=== PATIENT | female | born 1950 | race Caucasian/White ===

== ENCOUNTER → 2016-09-30 | Outpatient (CLI) | payer OTHER ==
[~2016-09-30] MED LIST: ASPEC81 PO; CALCTAB5 PO; CHOL100010 PO; EFFSR150 PO; GLC500 PO; HYDC25 PO; LISI-725 PO; LOVAZA PO; MAGN400T6 PO; SIMV20TA2 PO; [UNRECOGNIZED DRUG - CODE] PO
--- NOTE | 2016-09-30 13:45 | MAMMOGRAPHY REPORT ---
BILATERAL DIGITAL SCREENING MAMMOGRAM WITH CAD: 09/30/2016 CLINICAL HISTORY: Routine screening. Patient has no complaints. TECHNIQUE: Current study was also evaluated with a Computer Aided Detection (CAD) system. Bilatera l CC and MLO views were obtained. COMPARISON: Comparison is made to exams dated: 09/10/2015 mammogram, 09/06/2014 mammogram, 06/14/2013 mammogram, 06/08/2012 mammogram, and 06/08/2011 mammogram - [facility]. BREAST COMPOSITION: There are scattered areas of fibroglandular density in both breasts. FINDINGS: No suspicious masses, calcifications, or areas of architectural distortion are noted in e ither breast. There has been no significant interval change compared to prior exams. Scattered bilat eral benign-appearing calcifications are not significantly changed. IMPRESSION: ACR BI-RADS CATEGORY 2: BENIGN There is no mammographic evidence of malignancy. A 1 year screening mammogram is recommended. The p atient will receive written notification of the results. Approximately 10% of breast cancers are not detected with mammography. A negative mammographic repor t should not delay biopsy if a clinically suggestive mass is present. Honey Jin M.D. /:09/30/2016 07:39:58 Continuous Still Operator: Simran Strickland, [facility] letter sent: Normal 1/2 BI-RADS Code: ACR BI-RADS Category 2: Benign
== END | disposition home or self-care (01) ==
LOC: C.MAMM 07:17
PROVIDERS: ATTEND Internal Medicine
DX: Z12.31 Encounter for screening mammogram for malignant neoplasm of breast (principal)

== ENCOUNTER → 2017-04-11 | Outpatient (CLI) | payer OTHER ==
[2017-04-11 12:28] LABS: ALT/SGPT 45 U/L (12-78); BLOOD UREA NITROGEN 18 mg/dl (7-18); BUN/CREATININE RATIO 28.7 (10-20); CALCIUM 8.9 mg/dl (8.5-10.1); CARBON DIOXIDE 26 mmol/L (21-32); CHLORIDE 105 mmol/L (98-107); CHOLESTEROL 198 mg/dl (0-200); CREATININE 0.64 mg/dl (0.60-1.20); GLUCOSE 103 mg/dl (70-99); POTASSIUM 3.8 mmol/L (3.5-5.1); SODIUM 139 mmol/L (136-145); TRIGLYCERIDES 119 mg/dl (0-150); VERY LOW DENSITY LIPOPROT CALC 24 mg/dl
[2017-04-11 12:31] LABS: ALB/GLOB RATIO 1.4 (0.9-2); ALKALINE PHOSPHATASE 67 U/L (45-117); AST/SGOT 41 U/L (15-37); CHOLESTEROL/HDL RATIO 3.2; HDL CHOLESTEROL 61 mg/dl; LDL CHOLESTEROL CALCULATED 113 mg/dl
[2017-04-11 12:37] LABS: ESTIMATED AVERAGE GLUCOSE 111 mg/dl; HA1C FLAG Normal (Normal)
== END | disposition home or self-care (01) ==
LOC: C.LABBFT 07:22
PROVIDERS: ATTEND Internal Medicine
DX: Z00.00 Encounter for general adult medical examination without abnormal findings (principal); E78.5 Hyperlipidemia, unspecified; I10 Essential (primary) hypertension; R73.01 Impaired fasting glucose; Z11.59 Encounter for screening for other viral diseases

== ENCOUNTER → 2017-05-19 | Outpatient (CLI) | payer OTHER | END | disposition home or self-care (01) | LOC: C.MAMM 10:34 | PROVIDERS: ATTEND Internal Medicine | DX: Z13.820 Encounter for screening for osteoporosis (principal) ==

== ENCOUNTER → 2017-09-15 | Outpatient (CLI) | payer OTHER ==
[2017-09-15 17:45] LABS: BASO % 0.4 %; BASO ABS # 0.03 K/uL (0-0.2); EOS % 0.4 %; EOS ABS # 0.03 K/uL (0-0.5); HEMATOCRIT 40.6 % (37-47); HEMOGLOBIN 13.8 g/dL (12.0-16.0); IG# 0.02 K/uL (0.00-0.02); LYMPH % 15.6 %; LYMPH ABS # 1.21 K/uL (1.2-3.4); MEAN CELL VOLUME 92.5 fL (80-100); MEAN CORPUSCULAR HEMOGLOBIN 31.4 pg (25-34); MEAN PLATELET VOLUME 8.9 fL (7.4-10.4); MONO % 7.3 %; MONO ABS # 0.57 K/uL (0.11-0.59); NEUT ABS # 5.91 K/uL (1.4-6.5); PLATELET COUNT 426 K/uL (130-400); RED CELL DISTRIBUTION WIDTH CV 12.2 % (11.5-14.5); RED CELL DISTRIBUTION WIDTH SD 41.5 fL (36.4-46.3); WHITE BLOOD COUNT 7.77 K/uL (4.8-10.8)
[2017-09-15 17:59] LABS: ALBUMIN 4.4 gm/dl (3.4-5.0); ALT/SGPT 58 U/L (12-78); AST/SGOT 44 U/L (15-37); BLOOD UREA NITROGEN 25 mg/dl (7-18); CARBON DIOXIDE 24 mmol/L (21-32); CREATININE 0.86 mg/dl (0.60-1.20); GLUCOSE 115 mg/dl (70-99); POTASSIUM 3.4 mmol/L (3.5-5.1); SODIUM 134 mmol/L (136-145)
[2017-09-15 18:09] LABS: ALKALINE PHOSPHATASE 72 U/L (45-117)
== END | disposition home or self-care (01) ==
LOC: C.LABBFT 12:15
PROVIDERS: ATTEND Physician Assistant Medical
DX: J20.9 Acute bronchitis, unspecified (principal)

== ENCOUNTER → 2017-09-15 | Outpatient (CLI) | payer OTHER ==
--- NOTE | 2017-09-15 11:17 | DIAGNOSTIC IMAGING REPORT ---
CHEST 2 VIEWS ROUTINE CLINICAL HISTORY: ACUTE BRONCHITIS COMPARISON STUDY: 10/09/2010 FINDINGS: The cardiac and mediastinal contours are normal. There is no evidence of focal pulmonary consolidation. There is no evidence of failure. No pleural effusions are visualized.[ An azygos fissure is evident. A subcentimeter opacity visualized in the substernal region of the lateral view, is felt to represent a summation. IMPRESSION: No active disease in the chest. Electronically signed by: Israel Sandoval M.D. 09/15/2017 11:16 AM Dictated Date/Time: 09/15/2017 11:15 AM
== END | disposition home or self-care (01) ==
LOC: C.RAD 10:51
PROVIDERS: ATTEND Physician Assistant Medical
DX: J20.9 Acute bronchitis, unspecified (principal)

== ENCOUNTER → 2017-09-26 | Outpatient (CLI) | payer OTHER ==
[2017-09-26 13:10] LABS: ALBUMIN 3.9 gm/dl (3.4-5.0); ALKALINE PHOSPHATASE 65 U/L (45-117); ALT/SGPT 33 U/L (12-78); AST/SGOT 27 U/L (15-37); BLOOD UREA NITROGEN 16 mg/dl (7-18); CARBON DIOXIDE 27 mmol/L (21-32); CREATININE 0.58 mg/dl (0.60-1.20); GLUCOSE 98 mg/dl (70-99); POTASSIUM 3.7 mmol/L (3.5-5.1); SODIUM 137 mmol/L (136-145)
== END | disposition home or self-care (01) ==
LOC: C.LABBFT 10:03
PROVIDERS: ATTEND Physician Assistant Medical
DX: I10 Essential (primary) hypertension (principal)

== ENCOUNTER → 2017-10-03 | Outpatient (CLI) | payer OTHER ==
--- NOTE | 2017-10-03 14:50 | MAMMOGRAPHY REPORT ---
BILATERAL DIGITAL SCREENING MAMMOGRAM TOMOSYNTHESIS WITH CAD: 10/03/2017 CLINICAL HISTORY: Patient has no complaints. TECHNIQUE: Breast tomosynthesis in addition to standard 2D mammography was performed. Current study was also evaluated with a Computer Aided Detection (CAD) system. COMPARISON: Comparison is made to exams dated: 09/30/2016 mammogram, 09/10/2015 mammogram, 09/06/2014 m ammogram, 06/14/2013 mammogram, 06/08/2012 mammogram, and 06/08/2011 mammogram - [facility]. BREAST COMPOSITION: There are scattered areas of fibroglandular density in both breasts. FINDINGS: There are a few benign rim calcifications in the breasts. Stable nodularity bilaterally. No suspicious mass, architectural distortion or cluster of microcalcifications is seen. IMPRESSION: ACR BI-RADS CATEGORY 1: NEGATIVE There is no mammographic evidence of malignancy. A 1 year screening mammogram is recommended. The pa tient will receive written notification of the results. Approximately 10% of breast cancers are not detected with mammography. A negative mammographic report should not delay biopsy if a clinically suggestive mass is present. Awa Kruse M.D. ay/:10/03/2017 08:19:01 Learning Strategist: Cuong MISHRA(R)(M), [facility] letter sent: Normal 1/2 BI-RADS Code: ACR BI-RADS Category 1: Negative
== END | disposition home or self-care (01) ==
LOC: C.MAMM 07:13
PROVIDERS: ATTEND Internal Medicine
DX: Z12.31 Encounter for screening mammogram for malignant neoplasm of breast (principal)

== ENCOUNTER 2021-03-20 07:52 | Inpatient (IN) ==
--- NOTE | 2021-03-09 16:20 | PAT Medication Instructions ---
Medication Instructions Date of Service March 09, 2021 Home Medications Medication Instructions Recorded cyclobenzaprine 5 mg tablet 5 mg PO TID PRN #90 tab 10/23/20 trazodone 50 mg tablet 100 mg PO HS #60 tab 10/23/20 One-A-Day Women's 50 Plus 1 tab PO QAM cyclobenzaprine 5 mg tablet 5 mg PO TID PRN trazodone 50 mg tablet 100 mg PO HS ascorbic acid (vitamin C) 1,000 mg tablet (Vitamin C) 1 g PO QAM aspirin 81 mg tablet,delayed release (Aspirin Low Dose) 81 mg PO QAM calcium carbonate 600 mg calcium (1,500 mg) tablet (Calcium) 600 mg PO QAM cholecalciferol (vitamin D3) 125 mcg (5,000 unit) tablet (Vitamin D3) 125 mcg PO QAM cinnamon bark 500 mg capsule (Cinnamon) 1,000 mg PO BID coQ10 (ubiquinol) 200 mg capsule 200 mg PO QAM gabapentin 100 mg capsule 100 mg PO HS glucosamine HCl 500 mg tablet 500 mg PO BID magnesium 250 mg tablet 250 mg PO QAM meloxicam 7.5 mg tablet 15 mg PO BID PRN rosuvastatin 5 mg tablet 5 mg PO HS hydrochlorothiazide 25 mg tablet 25 mg PO QAM lisinopril 20 mg tablet 20 mg PO QAM turmeric root extract 500 mg capsule 500 mg PO QAM venlafaxine 150 mg capsule,extended release 24 hr (Effexor XR) 150 mg PO QAM ASK your surgeon for instructions meloxicam 7.5 mg tablet 15 mg PO BID PRN ASK your prescriber and surgeon aspirin 81 mg tablet,delayed release (Aspirin Low Dose) 81 mg PO QAM STOP taking 2 weeks before surgery (or as soon as possible if surgery is within 2 weeks) cinnamon bark 500 mg capsule (Cinnamon) 1,000 mg PO BID coQ10 (ubiquinol) 200 mg capsule 200 mg PO QAM glucosamine HCl 500 mg tablet 500 mg PO BID turmeric root extract 500 mg capsule 500 mg PO QAM DO NOT take the morning of surgery One-A-Day Women's 50 Plus 1 tab PO QAM cyclobenzaprine 5 mg tablet 5 mg PO TID PRN ascorbic acid (vitamin C) 1,000 mg tablet (Vitamin C) 1 g PO QAM calcium carbonate 600 mg calcium (1,500 mg) tablet (Calcium) 600 mg PO QAM cholecalciferol (vitamin D3) 125 mcg (5,000 unit) tablet (Vitamin D3) 125 mcg PO QAM magnesium 250 mg tablet 250 mg PO QAM hydrochlorothiazide 25 mg tablet 25 mg PO QAM lisinopril 20 mg tablet 20 mg PO QAM Take morning of surgery With a small sip of water, OTHERWISE NOTHING TO EAT OR DRINK AFTER MIDNIGHT: venlafaxine 150 mg capsule,extended release 24 hr (Effexor XR) 150 mg PO QAM Take evening before surgery cyclobenzaprine 5 mg tablet 5 mg PO TID PRN (if needed) trazodone 50 mg tablet 100 mg PO HS gabapentin 100 mg capsule 100 mg PO HS rosuvastatin 5 mg tablet 5 mg PO HS Other Notes If you have any questions please call us at [phone] or [phone] or [phone] or [phone]
--- NOTE | 2021-03-10 13:20 | Anesthesiology Consultation ---
Date of Service March 10, 2021 Assessment & Plan (1) Encounter for pre-operative examination: COVID screening: Per assessment on 03/10: Travel screen negative, no known COVID- 19 positive contacts or current COVID-19 related symptoms. Patient vaccinated. Surgeon arranging preop COVID testing. Awaiting results. Chart Review Chart Review: Acceptable Risk for Surgery (pending surgeon-ordered PCP clearance) and Patient seen in Pre Admission Testing Teaching & Discussion Pre-Anesthesia Teaching/Discussion Notes: Instructed NPO after midnight before surgery,except medications with 15 cc of water. Medication instructions provided according to the PAT guidelines. History Surgery Operation Date: 03/20/21 12:40 Proposed Procedures p L5-S1 Decompression Fusion, Spinal Cord Monitoring - Edmar Iqbal DO Height/Weight Height: 4 ft 8 in Weight: 72.1 kg Allergies Allergy/AdvReac Type Severity Reaction Status Date / Time No Known Allergies Allergy Verified 03/09/21 15:27 Medications Home Medications Medication Instructions Recorded Confirmed Last Taken tughonvhxpfk-kkgjnmnh-smilgmi-folic 1 tab PO QAM tab 05/04/19 03/09/21 02/14/21 acid 400 mcg-vit K1 20 mcg tablet (One-A-Day Women's 50 Plus) cyclobenzaprine 5 mg tablet 5 mg PO TID PRN #90 tab 10/23/20 03/09/21 Unknown trazodone 50 mg tablet 100 mg PO HS #60 tab 10/23/20 03/09/21 02/13/21 ascorbic acid (vitamin C) 1,000 mg 1 g PO QAM 02/14/21 03/09/21 02/14/21 tablet (Vitamin C) aspirin 81 mg tablet,delayed 81 mg PO QAM 02/14/21 03/09/21 02/14/21 release (Aspirin Low Dose) calcium carbonate 600 mg calcium 600 mg PO QAM 02/14/21 03/09/21 02/14/21 (1,500 mg) tablet (Calcium) cholecalciferol (vitamin D3) 125 125 mcg PO QAM 02/14/21 03/09/21 02/14/21 mcg (5,000 unit) tablet (Vitamin D3) cinnamon bark 500 mg capsule 1,000 mg PO BID 02/14/21 03/09/21 02/14/21 08:00 (Cinnamon) coQ10 (ubiquinol) 200 mg capsule 200 mg PO QAM 02/14/21 03/09/21 02/14/21 gabapentin 100 mg capsule 100 mg PO HS 02/14/21 03/09/21 02/13/21 glucosamine HCl 500 mg tablet 500 mg PO BID 02/14/21 03/09/21 02/14/21 08:00 magnesium 250 mg tablet 250 mg PO QAM 02/14/21 03/09/21 02/14/21 meloxicam 7.5 mg tablet 15 mg PO BID PRN 02/14/21 03/09/21 Unknown rosuvastatin 5 mg tablet 5 mg PO HS 02/14/21 03/09/21 02/13/21 hydrochlorothiazide 25 mg tablet 25 mg PO QAM 03/09/21 03/09/21 Unknown lisinopril 20 mg tablet 20 mg PO QAM 03/09/21 03/09/21 Unknown turmeric root extract 500 mg 500 mg PO QAM 03/09/21 03/09/21 Unknown capsule venlafaxine 150 mg 150 mg PO QAM 03/09/21 03/09/21 Unknown capsule,extended release 24 hr (Effexor XR) Past Medical History Medical History Aortic stenosis Moderate on echo 01/2021 Depression Hyperlipidemia Hypertension Insomnia Lumbar degenerative disc disease Osteoarthritis Exercise / Class Metabolic Activity II 4-5 Yardwork/Stairs/Walk up hill (one FS (no CP, no SOB)) Past Family History Family History Mother Depression Hepatic cirrhosis Hypertension Sister Hypertension Other No family history of adverse response to anesthesia Denies family history of Ovarian cancer Prostate cancer Myocardial infarction Breast cancer Colorectal cancer Past Surgical History Surgical History History of colonoscopy History of tonsillectomy S/P epidural steroid injection S/P right knee arthroscopy S/P ERWIN-BSO Past Anesthesia History No Hx of Anesthesia Complications and No Family Hx of Anesthesia Complications History of PONV No Hx of PONV and No Hx of Motion Sickness Social History Smoking Status: Former smoker tobacco type: cigarettes Do You Dip or Chew Tobacco: No Smoking End Date: 1979 (hx 10 cigs/day) Hx Alcohol Use: No Hx Substance Use: No substance use type: does not use Review of Systems Patient denies chest pain, shortness of breath, dyspnea on exertion, fever, chills, cough, wheezing, palpitations. Physical Exam Vital Signs VITALS BP 98/64 > 100/63 P 83 TEMP 98.7 SP02 97%RA RESP 16 PHYSICAL Full cervical extension range of motion. Full TMJ range of motion. TMD 3 finger breaths Mallampati Score 1 Dentition: upper/lower full dentures Lungs: clear throughout to auscultation Cardiac: regular rate and rhythm, III/ systolic murmur Spine: normal Carotid arteries: negative bruit Extremities: no edema Lab Results Anesthesia Preop Results Results Anesthesia Widget: WBC 5.17 K/uL (4.8-10.8) 03/10/21 Hgb 11.4 g/dL (12.0-16.0) L 03/10/21 Hct 33.9 % (37-47) L 03/10/21 Plt 353 K/uL (130-400) 03/10/21 Na 138 mmol/L (136-145) 03/10/21 K 3.8 mmol/L (3.5-5.1) 03/10/21 Cl 105 mmol/L (98-107) 03/10/21 CO2 28 mmol/L (21-32) 03/10/21 BUN 21 mg/dl (7-18) H 03/10/21 Creat 0.72 mg/dl (0.6-1.2) 03/10/21 Glucose Level 101 mg/dl (70-99) H 03/10/21 PT 9.5 Seconds (9.0-12.0) 03/10/21 PTT 27.1 Seconds (21.0-31.0) 03/10/21 INR 0.9 (0.9-1.1) 03/10/21 Urine Color Dark Yellow 03/10/21 Urine Appearance Clear (Clear) 03/10/21 Urine pH 7.0 (4.5-7.5) 03/10/21 Urine Specific [place] 1.026 (1.000-1.030) 03/10/21 Urine Protein Negative (Negative) 03/10/21 Urine Glucose (UA) Negative (Negative) 03/10/21 Urine Ketones Trace (Negative) H 03/10/21 Urine Blood Negative (Negative) 03/10/21 Urine Nitrite Negative (Negative) 03/10/21 Urine Bilirubin Negative (Negative) 03/10/21 Urine Urobilinogen Negative (Negative) 03/10/21 Urine Leukocyte Esterase Negative (Negative) 03/10/21 Blood Type A Positive 03/10/21 Antibody Screen NEGATIVE 03/10/21 Testing Electrocardiogram Date: 03/10/21 Findings: + NSR @ (79) Chest X-Ray Date: 03/10/21 FINDINGS: Lung volumes are normal. Lungs are clear. There is no pneumothorax or pleural effusion. Cardiac size is normal. Mediastinal contours are normal. There is no evidence for pulmonary edema. Incidental note is made of an azygos fissure. IMPRESSION: No acute cardiopulmonary findings. Echocardiogram Date: 02/04/21 EF 55 to 60%. No regional wall motion abnormality. Mild concentric LVH. Moderate LAD. Moderate calcified aortic stenosis (EBONI 0.96 to 1.1 cm, MG 21.6 mmHg). Trace to mild AR. Normal estimated right heart pressures. Compared to echo of 03/05/2020, there is no significant change in the mean gradient across aortic valve or dimensionless valve index per report.
[~2021-03-20 07:52] MED LIST changes: +ACETAMINOPHEN 500 MG TAB PO SCH; -ASPEC81 PO; -CALCTAB5 PO; -CHOL100010 PO; +CeleBREX 200 MG CAP PO SCH; -EFFSR150 PO; +GABAPENTIN 300 MG CAP PO SCH; -GLC500 PO; -HYDC25 PO; -LISI-725 PO; -LOVAZA PO; +LR 15ML/HR IV SCH; -MAGN400T6 PO; -SIMV20TA2 PO; -[UNRECOGNIZED DRUG - CODE] PO; +ceFAZolin 2000MG 2,000 MG/15 ML SYR IV SCH
[2021-03-20] MEDS ORDERED: PROPOFOL IV EMULSION 10 MG/ML 20 ML VIAL IV ONE (08:49)
[2021-03-20] MEDS ORDERED: GLYCOPYRROLATE 0.2 MG/ML VIAL ONE (08:49)
[2021-03-20] MEDS ORDERED: DEXAMETHASONE SOD INJ 4 MG/ML VIAL ONE (08:49)
[2021-03-20] MEDS ORDERED: LIDOCAINE 2% 2 ML VIAL/AMP(20MG/ML) INFIL ONE (08:49)
[2021-03-20] MEDS ORDERED: NEOSTIGMINE METHYLSULFATE 1 MG/ML 10ML VIAL ONE (08:49)
[2021-03-20] MEDS ORDERED: MIDAZOLAM HCL 1 MG/ML 2ML VIAL ONE (08:49)
[2021-03-20] MEDS ORDERED: fentaNYL citrate 100 MCG/2 ML VIAL ONE (08:49)
[2021-03-20] MEDS ORDERED: ONDANSETRON INJ 2 MG/ML 2 ML VIAL ONE (08:49)
[2021-03-20] MEDS ORDERED: ePHEDrine sulfate 50 MG/ML AMP IV PRN (09:15)
[2021-03-20] MEDS ORDERED: ATROPINE SULFATE 0.1 MG/ML 10ML SYR IV PRN (09:15)
[2021-03-20] MEDS ORDERED: fentaNYL citrate 100 MCG/2 ML VIAL IV PRN (09:15)
[2021-03-20] MEDS ORDERED: ONDANSETRON INJ 2 MG/ML 2 ML VIAL IV PRN ×2 (09:15→12:57)
[2021-03-20] MEDS ORDERED: HYDROmorphone INJ 2 MG/ML SYR/VIAL IV PRN (09:15)
--- NOTE | 2021-03-20 09:36 | History & Physical Bridge Note ---
Date of Service March 20, 2021 History & Physical Bridge Note I have examined the patient, reviewed the History & Physical and in the interval since the performance of the History & Physical I have noted the following changes of clinical significance: no changes noted
--- NOTE | 2021-03-20 09:37 | History & Physical Report ---
Date of Service March 20, 2021 Assessment & Plan (1) Neurogenic claudication due to lumbar spinal stenosis: Plan: L5-S1 decompression fusion History of Present Illness Chief Complaint: Back and leg pain Primary Care Provider: Jenn Lynch MD This is a 70-year-old female who presents with chronic persistent back and leg pain after failing extensive course of nonoperative care is here for surgical intervention. Allergies Allergy/AdvReac Type Severity Reaction Status Date / Time No Known Allergies Allergy Verified 03/20/21 08:29 Home Medications Medication Instructions Recorded Confirmed Type ofifzfrnxzij-kotytwic-ynobllt-folic 1 tab PO QAM tab 05/04/19 03/20/21 History acid 400 mcg-vit K1 20 mcg tablet (One-A-Day Women's 50 Plus) cyclobenzaprine 5 mg tablet 5 mg PO TID PRN #90 tab 10/23/20 03/20/21 Rx trazodone 50 mg tablet 100 mg PO HS #60 tab 10/23/20 03/20/21 Rx ascorbic acid (vitamin C) 1,000 mg 1 g PO QAM 02/14/21 03/20/21 History tablet (Vitamin C) aspirin 81 mg tablet,delayed 81 mg PO QAM 02/14/21 03/20/21 History release (Aspirin Low Dose) calcium carbonate 600 mg calcium 600 mg PO QAM 02/14/21 03/20/21 History (1,500 mg) tablet (Calcium) cholecalciferol (vitamin D3) 125 125 mcg PO QAM 02/14/21 03/20/21 History mcg (5,000 unit) tablet (Vitamin D3) cinnamon bark 500 mg capsule 1,000 mg PO BID 02/14/21 03/20/21 History (Cinnamon) coQ10 (ubiquinol) 200 mg capsule 200 mg PO QAM 02/14/21 03/20/21 History gabapentin 100 mg capsule 100 mg PO HS 02/14/21 03/20/21 History glucosamine HCl 500 mg tablet 500 mg PO BID 02/14/21 03/20/21 History magnesium 250 mg tablet 250 mg PO QAM 02/14/21 03/20/21 History meloxicam 7.5 mg tablet 15 mg PO BID PRN 02/14/21 03/20/21 History rosuvastatin 5 mg tablet 5 mg PO HS 02/14/21 03/20/21 History hydrochlorothiazide 25 mg tablet 25 mg PO QAM 03/09/21 03/20/21 History turmeric root extract 500 mg 500 mg PO QAM 03/09/21 03/20/21 History capsule venlafaxine 150 mg 150 mg PO QAM 03/09/21 03/20/21 History capsule,extended release 24 hr (Effexor XR) lisinopril 20 mg tablet 20 mg PO DAILY #90 tab 03/12/21 03/20/21 Rx Past Med/Surg History Medical History Aortic stenosis Moderate on echo 01/2021 Depression Hyperlipidemia Hypertension Insomnia Lumbar degenerative disc disease Osteoarthritis Surgical History History of colonoscopy History of tonsillectomy S/P epidural steroid injection S/P right knee arthroscopy S/P ERWIN-BSO Family History Mother Depression Hepatic cirrhosis Hypertension Sister Hypertension Other No family history of adverse response to anesthesia Denies family history of Ovarian cancer Prostate cancer Myocardial infarction Breast cancer Colorectal cancer Social History Smoking Status: Former smoker Tobacco Type: Cigarettes Age Started Using Tobacco: 20; Age Quit Using Tobacco: 22; packs per day: 0.5; Years Smoked: 3; Smoking End Date: 1979 (hx 10 cigs/day); Number of Years Since Quit: 46; Second Hand Exposure: Yes; Do You Dip or Chew Tobacco: No; Tobacco Cessation Education Requested by Patient: No Hx Alcohol Use: No Hx Substance Use: No Preferred Language: Trinidadian Communication Ability: Effective Visual Impairment: No Limitations Hearing Ability: Normal Publicity Expert Required: No Beliefs That Will Affect Care: None marital status: Current Living Situation: Spouse current occupational status: retired 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
[2021-03-20] MEDS ORDERED: EPINEPHrine INJ 1 MG/ML AMP ONE (09:54)
[2021-03-20] MEDS ORDERED: BUPIVACAINE 0.5 % 5 MG/1 ML MPF 30ML VIAL ONE (09:54)
[2021-03-20] MEDS ORDERED: ePHEDrine sulfate 50 MG/ML SYR ONE (11:19)
[2021-03-20] MEDS ORDERED: ROCURONIUM BROMIDE 10 MG/ML 5 ML VIAL IV ONE (11:19)
[2021-03-20] MEDS ORDERED: PHENYLEPHRINE 100MCG/ML 5ML SYR ONE (11:19)
[2021-03-20] MEDS ORDERED: FLOSEAL HEMOSTATIC MATRIX 10ML TOP ONE (11:44)
--- NOTE | 2021-03-20 11:51 | Operative Report ---
Post Operative Report Pre & Post Diagnosis Operation Date: 03/20/21 09:55 Pre-Op Diagnosis: Spinal Stenosis, Lumbar Region with Neurogenic Post-Op Diagnosis: Spinal Stenosis, Lumbar Region with Neurogenic I identified the patient and participated in the time-out.: Yes Procedure Operation Date: 03/20/21 09:55 Actual Procedures #1 lumbar decompression with bilateral facetectomies and foraminotomies L4-5 L5- S1. #2 posterior spinal fusion L5-S1. #3 placed posterior instrumentation L5-S1. #4 interbody fusion L5-S1. #5 placement peek cage 10 x 22 mm at L5-S1. #6 placement infuse collagen sponge, and master graft in the posterior lateral gutters and I factor interbody space. #7 placement of locally harvested morselized autograft in the posterior lateral gutters. Surgeon Edmar Iqbal, DO Office Machine Servicer Apprentice Jesus Olsen Estimated Blood Loss 75 Findings Consistent with Post-Op Diagnosis Specimens None Indications This is a 70-year-old female the presents with the above-mentioned diagnosis after failing course of nonoperative care is here for surgical invention. Description of Procedure Patient was met with identified informed consent obtained. Patient was then taken to the operative suite underwent a patient placed in a prone position just table top less than frame. All bony prominences well-padded eyes inspected to ensure no external proximal spine. This point lumbar spine was prepped and draped in a sterile fashion. Sharp dissection with the assistance of Bovie cartilage from down to and exposing the lamina transverse process of L5 and the sacral ala bilaterally. From caudal cephalad fashion complete laminectomy L5 partial laminectomy of L4 was performed including bilateral medial facetectomies and foraminotomies as well as addressing a massive facet cyst L5-S1 on the left. After complete decompression pedicle screws were placed in L5 and S1 levels bilaterally with assistance of fluoroscopy and the properly sized alana placed. Bilateral transforaminal portion left complete discectomy was performed endplates curetted to subcortical being bone and 11 x 22 mm peek cage filled with I factor tapped in position. The rods were then compressed locked in final position bilaterally. The transverse processes of L5 and sacral ala burred to subcortical bleeding bone. Infuse collagen sponge master graft lobe autograft was placed in the posterior gutters. 15 round ANTONIO drain inserted. Incision was then closed with 1 Vicryl the fascia 2-0 Vicryl subcutaneously and 4 Monocryl for final skin closure. Steri-Strip sterile dressings placed. Patient was then taken back in stable condition. Please note spinal cord monitoring was utilized at the procedure no changes noted. Lastly Jesus Olsen was present at the entire procedure involved the patient positioning complex portions of the surgery and final skin closure. I attest to the content of the Intraoperative Record and any orders documented therein. Any exceptions are noted below.
--- NOTE | 2021-03-20 11:52 | Fluoroscopy Report ---
FL lumbar spine 2-3V CLINICAL HISTORY: L5-S1 DECOMPRESSION/FUSION COMPARISON STUDY: Lumbar spine radiographs July 10, 2018. Lumbar spine MRI July 12, 2018. FLUOROSCOPY TIME: 20 seconds. FLUOROSCOPIC IMAGES: 2 FINDINGS: Fluoroscopy was provided during L5-S1 posterior decompression, discectomy and bilateral ped icle screw fusion. Hardware is intact. IMPRESSION: Fluoroscopy provided during L5-S1 posterior decompression, discectomy and bilateral pedi erin screw fusion. ACT 112: Negative or not required by law. Electronically signed by: Esdras Lynch M.D. 03/20/2021 11:51 AM
--- NOTE | 2021-03-20 12:53 | Anesthesiology Progress Note ---
Date of Service March 20, 2021 Anesthesia Post Procedure Vital Signs Vital Signs: Temp Pulse Pulse Resp BP Pulse Ox 03/20/21 12:30 37.0 C 71 21 119/60 100 03/20/21 12:20 75 16 116/61 100 03/20/21 12:10 73 9 L 114/59 L 100 03/20/21 12:04 36.3 C L 77 16 116/53 L 98 03/20/21 08:47 36.5 C 80 20 131/75 100 Transfer of Care Handoff Completed per policy Notes Mental Status: alert / awake / arousable and participated in evaluation Patient Amnestic to Procedure: Yes Nausea / Vomiting: adequately controlled Pain: adequately controlled Airway Patency, RR, SpO2: stable & adequate BP & HR: stable & adequate Hydration State: stable & adequate Anesthetic Complications: no major complications apparent
[2021-03-20] MEDS ORDERED: METOCLOPRAMIDE HCL INJ 5 MG/ML 2 ML VIAL IV PRN (12:57)
[2021-03-20] MEDS ORDERED: ACETAMINOPHEN 500 MG TAB PO PRN (12:57)
[2021-03-20] MEDS ORDERED: MAGNESIUM HYDROXIDE SUSP 30 ML UDC PO PRN (12:57)
[2021-03-20] MEDS ORDERED: diphenhydrAMINE Capsule 25 MG CAP PO PRN (12:57)
[2021-03-20] MEDS ORDERED: HYDROmorphone INJ 1 MG/ML SYRINGE IV PRN (12:57)
[2021-03-20] MEDS ORDERED: ALUMINUM/MAGNESIUM SUSP 30 ML UDC PO PRN (12:57)
[2021-03-20] MEDS ORDERED: FAMOTIDINE 20 MG TAB PO PRN (12:57)
[2021-03-20] MEDS ORDERED: HYDROmorphone INJ 0.5 MG/0.5 ML SYR IV PRN (12:57)
[2021-03-20] MEDS ORDERED: SOD PHOSPHATE/SOD BIPHOSPHATE ENEMA 132 ML BTL PR PRN (12:57)
[2021-03-20] MEDS ORDERED: hydrOXYzine HCl 25 MG TAB PO PRN (12:57)
[2021-03-20] MEDS ORDERED: LORazepam 0.5 MG/1 ML VIAL IV PRN (12:57)
[2021-03-20] MEDS ORDERED: NALOXONE HCL 0.4 MG/1 ML VIAL/CARP IV PRN (12:57)
[2021-03-20] MEDS ORDERED: CYCLOBENZAPRINE HCL 5 MG TAB PO PRN (12:57)
[2021-03-20] MEDS ORDERED: ACETAMINOPHEN 1,000 MG/100 ML VIAL IV PRN (12:57)
[2021-03-20] MEDS ORDERED: oxyCODONE HCL IR 5 MG TAB (IMMEDIATE RELEASE) PO PRN (12:57)
[2021-03-20] MEDS ORDERED: traMADol HCL 50 MG TABLET PO PRN (12:57)
[2021-03-20] MEDS ORDERED: ONDANSETRON 4 MG OD TAB PO PRN (12:57)
[2021-03-20] MEDS ORDERED: bisacodyL 10 MG SUPP PR PRN (12:57)
[2021-03-20] MEDS ORDERED: PROMETHAZINE HCL 12.5 MG in SODIUM CHLORIDE 0.9% 50 ML IV PRN (12:57)
[2021-03-20] MEDS ORDERED: LORazepam 0.5 MG TAB PO PRN (12:57)
[2021-03-20] MEDS ORDERED: DO NOT ADMINISTER FLU VACCINE PRN (12:57)
[2021-03-20] MEDS ORDERED: DO NOT ADMINISTER PNEUMOCOCCAL VACCINE PRN (12:57)
[2021-03-20] MEDS: SODIUM CHLORIDE 0.9% 1000ML 1,000 ML IV SCH ×2 (13:38→23:07)
--- NOTE | 2021-03-20 14:20 | Hospitalist Consultation ---
Date of Consultation March 20, 2021 Assessment & Plan (1) Neurogenic claudication due to lumbar spinal stenosis: - s/p L5-S1 decompression with fusion (POD #0) - patient currently controlled - recommendations include: post-op pain mgmt (at discretion of primary), PT/OT, IS, continue perioperative abx prophylaxis a DVT prophylaxis (also per primary) - patient seems highly motivated to return to her home (2) Hypertension: - agree with continuation of her home BP meds: lisinopril/HCTZ, (3) Hyperlipidemia: - okay to continue her crestor as prior to hospitalization (4) Aortic stenosis: - seems fairly asymptomatic with this. - does take lisinopril/HCTZ (which does cause pre-load reduction). Okay to continue this. If progression in disease, would consider stopping this. - follow up with PCP to monitor. 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 okay to continue this. - patient on routine baby ASA (which looks like it has been continued). Patient vocalizes no h/o cardiac disease or cerebrovascular disease. Would be okay to home ASA if wanting to use other means of DVT prophylaxis. At discretion of primary. - will sign off on this patient form a medical standpoint. Thank you for allowing to us to participate in his care. Please do not hesitate to reconsult should a problem arise. Supervising Physician Co-Signing Physician Notes Patient seen and examined with Carmen Osman PA-C. I agree with her exam findings, review of systems, assessment and plan. I personally reviewed the lab work and imaging as well. - s/p lumbar spine surgery: management per Dr. Iqbal - Aortic stenosis: no symptoms, continue routine follow up - HTN: BP stable, home regimen History of Present Illness Reason for Consultation: Medical management Requesting Physician: Dr. Iqbal Attending Physician: Edmar Iqbal, History of Present Illness Mrs. Velasquez is a 70-year-old white female with a past medical history of moderate aortic stenosis, depression, anxiety, hyperlipidemia, hypertension, lumbar SS with neurogenic claudication failing conservative measures. Was seen in consultation today for medical mgmt following L5-S1 decompression/fusion. She had general anesthesia, had an uneventful perioperative course with an EBL of 75cc. CIs crrently, she is resting comfortably in her hospital bed eating lunch. Denies F/C, CP, SOB, abd pain, N/V,GI/GI symptoms. Does have moderate . Echo done 02/02 and reviewed. Denies a h/o CHF, dizziness/lightheadedness, syncope of near syncope. Denies h/o post-op complications in the past. No personal or family h/o DVT/PE. blood dyscrasia. Lives in a 1 story home with her . 2 steps leading into the home. Goal is for return to home upon discharge. Allergies Allergy/AdvReac Type Severity Reaction Status Date / Time No Known Allergies Allergy Verified 03/20/21 08:29 Home Medications Medication Instructions Recorded Confirmed Type vqydohyakaxf-qbthpcxi-vhuqdog-folic 1 tab PO QAM tab 05/04/19 03/20/21 History acid 400 mcg-vit K1 20 mcg tablet (One-A-Day Women's 50 Plus) cyclobenzaprine 5 mg tablet 5 mg PO TID PRN #90 tab 10/23/20 03/20/21 Rx trazodone 50 mg tablet 100 mg PO HS #60 tab 10/23/20 03/20/21 Rx ascorbic acid (vitamin C) 1,000 mg 1 g PO QAM 02/14/21 03/20/21 History tablet (Vitamin C) aspirin 81 mg tablet,delayed 81 mg PO QAM 02/14/21 03/20/21 History release (Aspirin Low Dose) calcium carbonate 600 mg calcium 600 mg PO QAM 02/14/21 03/20/21 History (1,500 mg) tablet (Calcium) cholecalciferol (vitamin D3) 125 125 mcg PO QAM 02/14/21 03/20/21 History mcg (5,000 unit) tablet (Vitamin D3) cinnamon bark 500 mg capsule 1,000 mg PO BID 02/14/21 03/20/21 History (Cinnamon) coQ10 (ubiquinol) 200 mg capsule 200 mg PO QAM 02/14/21 03/20/21 History gabapentin 100 mg capsule 100 mg PO HS 02/14/21 03/20/21 History glucosamine HCl 500 mg tablet 500 mg PO BID 02/14/21 03/20/21 History magnesium 250 mg tablet 250 mg PO QAM 02/14/21 03/20/21 History meloxicam 7.5 mg tablet 15 mg PO BID PRN 02/14/21 03/20/21 History rosuvastatin 5 mg tablet 5 mg PO HS 02/14/21 03/20/21 History hydrochlorothiazide 25 mg tablet 25 mg PO QAM 03/09/21 03/20/21 History turmeric root extract 500 mg 500 mg PO QAM 03/09/21 03/20/21 History capsule venlafaxine 150 mg 150 mg PO QAM 03/09/21 03/20/21 History capsule,extended release 24 hr (Effexor XR) lisinopril 20 mg tablet 20 mg PO DAILY #90 tab 03/12/21 03/20/21 Rx oxycodone 5 mg tablet 5 mg PO Q6H PRN #30 tab 03/21/21 Rx tramadol 50 mg tablet 50 mg PO Q6H PRN #30 tab 03/21/21 Rx Patient History Medical History Aortic stenosis Moderate on echo 01/2021 Depression Hyperlipidemia Hypertension Insomnia Lumbar degenerative disc disease Osteoarthritis Surgical History History of colonoscopy History of tonsillectomy S/P epidural steroid injection S/P right knee arthroscopy S/P ERWIN-BSO Family History Mother Depression Hepatic cirrhosis Hypertension Sister Hypertension Other No family history of adverse response to anesthesia Denies family history of Ovarian cancer Prostate cancer Myocardial infarction Breast cancer Colorectal cancer Social History Smoking Status: Former smoker Tobacco Type: Cigarettes Age Started Using Tobacco: 20; Age Quit Using Tobacco: 22; packs per day: 0.5; Years Smoked: 3; Smoking End Date: 1979 (hx 10 cigs/day); Number of Years Since Quit: 46; Second Hand Exposure: Yes; Do You Dip or Chew Tobacco: No; Tobacco Cessation Education Requested by Patient: No Hx Alcohol Use: No Hx Substance Use: No Preferred Language: Spanish Communication Ability: Effective Visual Impairment: No Limitations Hearing Ability: Normal Cake Froster Required: No Beliefs That Will Affect Care: None marital status: Current Living Situation: Spouse current occupational status: retired 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 Other Information That Helps Us Care for You: No Feels Safe at Home: Yes Safety Concerns: Feels Safe At This Time Childhood Exposure to Second-Hand Smoke: Yes Dental Care, Regularly: No Physical Activity Frequency: Daily Seatbelt Use: always Sunscreen Use: No Assistive Devices: Glasses and Walker Review of Systems Review of Systems: All systems reviewed and are unremarkable except as noted in HPI and below Denies fevers, chills, headache, nasal congestion, sore throat, cough, chest pain, shortness of breath, abdominal pain, nausea, vomiting, dysuria, hematuria, frequency, current back pain, skin lesions or rashes. Physical Exam Physical Exam: General: Resting comfortably in her hospital bed. NAD. Neck: No JVD. Negative hepatojugular reflex Cardiac: RRR 3/6 holosystolic murmur Lungs: CTA without W/R/R Abdomen: Normoactive X4. Soft and nontender in all quadrants. M/S and Extremities: Lumbar spine with surgical dressing that is intact. ANTONIO drain noted. No peripheral clubbing cyanosis or edema. DP/PT pulses are intact and symmetrical bilaterally. Cap RF +2. Neuro: A&O X4 cranial nerves II through XII are grossly intact no focal neuro deficits Skin: No obvious skin lesions or rashes Results & Data Results & Data ([facility]) Vital Signs (Past 12 Hours) Vital Signs Temp Pulse Pulse Resp BP Pulse Ox 03/20/21 13:24 36.5 C 73 16 109/60 92 03/20/21 13:00 36.9 C 75 16 109/66 95 03/20/21 12:40 37.0 C 72 14 122/64 100 03/20/21 12:30 37.0 C 71 21 119/60 100 03/20/21 12:20 75 16 116/61 100 03/20/21 12:10 73 9 L 114/59 L 100 03/20/21 12:04 36.3 C L 77 16 116/53 L 98 03/20/21 08:47 36.5 C 80 20 131/75 100 Laboratory Results labs reviewed from pre-op workup (03/10) Na++: 138 K+: 3.8 Chl: 105 Co2: 28 BUN/Cr: 21/.072 Glu: 101 WBC: 5.17 H/H: 11.4/33.9 Plt: 353 Echo reviewed: EF 55-60% with grade I DD. moder unchanged from prior echo PG Care Time/CCT Total # of Minutes Spent Total Time Spent with Patient: Total time spent is greater than 50% in coordination of care (as documented) at patient's floor/unit and/or counseling patient: [place] [address] Inpt Consult Level 4 Patient Type New Medical Decision Making Moderate Complexity Diagnoses Neurogenic claudication due to lumbar spinal stenosis M48.062 Hypertension I10 Hyperlipidemia E78.5 Aortic stenosis I35.0 Depression F32.9
[2021-03-20] MEDS ORDERED: NURSING DECISION MEDICATION ONE (16:48)
[2021-03-20] MEDS ORDERED: COUGH DROP (SUGAR FREE) LOZ 24 LOZ/1 BOX BUCCAL PRN (16:53)
[2021-03-20] MEDS: ceFAZolin 2000MG 2,000 MG/15 ML SYR IV SCH (17:26)
[2021-03-20] MEDS: GABAPENTIN 100 MG CAP PO SCH (20:48)
[2021-03-20] MEDS: ROSUVASTATIN CALCIUM 5 MG TAB PO SCH (20:49)
[2021-03-20] MEDS: traZODone HCL 100 MG TAB PO SCH (20:49)
[2021-03-20] MEDS: DOCUSATE SODIUM/SENNA 50/8.6MG TAB PO SCH (20:50)
[2021-03-21] MEDS: ceFAZolin 2000MG 2,000 MG/15 ML SYR IV SCH (02:03)
[2021-03-21] MEDS: POLYETHYLENE (MIRALAX) 17 GM PACK PO SCH ×4 (05:40→22:48)
[2021-03-21 06:03] LABS: Basophils # (auto) 0.01 K/uL (0-0.2); Basophils % (auto) 0.1 %; Hematocrit (blood only) 26.3 % (37-47); Hemoglobin 8.8 g/dL (12.0-16.0); Immature Granulocytes # (auto) 0.02 K/uL (0.00-0.02); Immature Granulocytes % (auto) 0.2 %; Lymphocytes # (auto) 1.05 K/uL (1.2-3.4); Lymphocytes % (auto) 9.4 %; Mean Corpuscular Hemoglobin 31.7 pg (25-34); Mean Corpuscular Hgb Conc 33.5 g/dL (32-36); Mean Corpuscular Volume 94.6 fL (80-100); Mean Platelet Volume 8.3 fL (7.4-10.4); Monocytes # (auto) 0.83 K/uL (0.11-0.59); Monocytes % (auto) 7.4 %; Neutrophils # (auto) 9.28 K/uL (1.4-6.5); Neutrophils % (auto) 82.9 %; Platelet Count 293 K/uL (130-400); RDW Coefficient of Variation 12.4 % (11.5-14.5); RDW Standard Deviation 42.5 fL (36.4-46.3); Red Blood Count 2.78 M/uL (4.2-5.4); White Blood Count 11.19 K/uL (4.8-10.8)
[2021-03-21 06:37] LABS: BUN Creatinine Ratio 25.9 (10-20); Calcium 7.9 mg/dl (8.5-10.1); Creatinine Clr Calc Pharmacy 74.7 ml/min; Est GFR (African American) 109.6 ml/min; Est GFR (Non-African American) 94.6 ml/min; Potassium 3.7 mmol/L (3.5-5.1)
[2021-03-21] MEDS: CALCIUM CARBONATE 1250MG TAB PO SCH (08:35)
[2021-03-21] MEDS: hydroCHLOROthiazide 25 MG TAB PO SCH (08:36)
[2021-03-21] MEDS: VENLAFAXINE HCL XR 150 MG CAPXR PO SCH (08:36)
[2021-03-21] MEDS: lisinopril 20 MG TAB PO SCH (08:36)
[2021-03-21] MEDS: CEROVITE ADV FORMULA TAB PO SCH (08:36)
[2021-03-21] MEDS: MAGNESIUM OXIDE 400 MG TAB PO SCH (08:36)
[2021-03-21] MEDS: ASPIRIN 81 MG ECTAB PO SCH (08:36)
[2021-03-21] MEDS ORDERED: NON-FORMULARY MEDICATION (Coq10 (Ubiquinol) 200 mg Capsule) PO SCH (09:00)
--- NOTE | 2021-03-21 10:46 | Orthopedic Progress Note ---
Date of Service March 21, 2021 Assessment & Plan (1) Neurogenic claudication due to lumbar spinal stenosis: Plan: This time continue physical therapy monitor ANTONIO output anticipate discharge home the next day or so. Admission and Anticipated Discharge Date Admission Date: March 20, 2021 Subjective Back pain pain is controlled leg symptoms markedly improved Physical Exam Physical Exam: Patient is in chair at the bedside. Is good strength testing appears comfortable. Results & Data ([facility]) Vital Signs (Past 12 Hours) Vital Signs Temp Pulse Resp BP Pulse Ox 03/21/21 07:48 37.0 C 73 16 102/64 94 03/21/21 03:31 36.8 C 72 14 109/61 96 03/20/21 23:11 36.6 C 80 15 97/61 L 94
[2021-03-21] MEDS: DOCUSATE SODIUM/SENNA 50/8.6MG TAB PO SCH (20:57)
[2021-03-21] MEDS: ROSUVASTATIN CALCIUM 5 MG TAB PO SCH (20:57)
[2021-03-21] MEDS: GABAPENTIN 100 MG CAP PO SCH (20:57)
[2021-03-21] MEDS: traZODone HCL 100 MG TAB PO SCH (20:57)
[2021-03-22] MEDS: POLYETHYLENE (MIRALAX) 17 GM PACK PO SCH (05:29)
--- NOTE | 2021-03-22 07:40 | Orthopedic Progress Note ---
Date of Service March 22, 2021 Assessment & Plan (1) Neurogenic claudication due to lumbar spinal stenosis: Plan: At this point we will continue to progress with PT and OT. We will continue with pain control measures. We will hold on discharge today as she still has not had a bowel movement. We will continue with her bowel regimen. And likely discharge her to home tomorrow. Admission and Anticipated Discharge Date Admission Date: March 20, 2021 Subjective Patient was seen bedside in room 312. She is postop day #2 status post L5-S1 d ecompression and fusion. She is doing well this morning. Her leg pain is gone. She has not yet had a bowel movement but has been working on her bowel regimen. She is tolerating p.o. She is not nauseous. She is passing gas. She denies any other numbness, tingling, or paresthesias. Physical Exam Physical Exam: On exam she is alert and oriented. She is able to move her extremities to gravity. She has full strength with dorsiflexion and plantarflexion. Her abdomen is soft and nontender her calves are supple nontender. Her dressing is clean dry and intact. Her ANTONIO drain is placed out 20 cc on the shift and 20 cc on the last. Results & Data ([facility]) Vital Signs (Past 12 Hours) Vital Signs Temp Pulse Resp BP BP Pulse Ox 03/22/21 07:13 37.2 C 79 16 108/64 95 03/21/21 23:00 37.1 C 76 16 107/66 93
[2021-03-22] MEDS: CALCIUM CARBONATE 1250MG TAB PO SCH (08:19)
[2021-03-22] MEDS: MAGNESIUM OXIDE 400 MG TAB PO SCH (08:19)
[2021-03-22] MEDS: CEROVITE ADV FORMULA TAB PO SCH (08:19)
[2021-03-22] MEDS: VENLAFAXINE HCL XR 150 MG CAPXR PO SCH (08:19)
[2021-03-22] MEDS: ASPIRIN 81 MG ECTAB PO SCH (08:19)
[2021-03-22] MEDS: dexAMETHasone 8 MG in SYRINGE 0 ML IV SCH (08:19)
[2021-03-22] MEDS: hydroCHLOROthiazide 25 MG TAB PO SCH (08:20)
[2021-03-22] MEDS: lisinopril 20 MG TAB PO SCH (08:20)
[2021-03-22] MEDS: DOCUSATE SODIUM/SENNA 50/8.6MG TAB PO SCH (20:39)
[2021-03-22] MEDS: traZODone HCL 100 MG TAB PO SCH (20:39)
[2021-03-22] MEDS: ROSUVASTATIN CALCIUM 5 MG TAB PO SCH (20:39)
[2021-03-22] MEDS: GABAPENTIN 100 MG CAP PO SCH (20:39)
[2021-03-23] MEDS: ASPIRIN 81 MG ECTAB PO SCH (08:29)
[2021-03-23] MEDS: VENLAFAXINE HCL XR 150 MG CAPXR PO SCH (08:29)
[2021-03-23] MEDS: MAGNESIUM OXIDE 400 MG TAB PO SCH (08:29)
[2021-03-23] MEDS: dexAMETHasone 8 MG in SYRINGE 0 ML IV SCH (08:29)
[2021-03-23] MEDS: hydroCHLOROthiazide 25 MG TAB PO SCH (08:30)
[2021-03-23] MEDS: CEROVITE ADV FORMULA TAB PO SCH (08:30)
[2021-03-23] MEDS: lisinopril 20 MG TAB PO SCH (08:30)
[2021-03-23] MEDS: CALCIUM CARBONATE 1250MG TAB PO SCH (08:30)
--- NOTE | 2021-03-23 12:04 | Discharge Summary ---
Date of Service March 23, 2021 Admission HPI Per Admitting Provider This is a 70-year-old female who presents with chronic persistent back and leg pain after failing extensive course of nonoperative care is here for surgical intervention. Principal Diagnosis Lumbar spinal stenosis with neurogenic claudication Discharge Data Allergies Allergy/AdvReac Type Severity Reaction Status Date / Time No Known Allergies Allergy Verified 03/20/21 08:29 Consultations 03/20/21 12:57 Consult Hospitalist Routine Procedures Performed Operation Date: 03/20/21 09:55 Actual Procedures p L5-S1 Decompression Fusion, Spinal Cord Monitoring - Edmar Iqbal DO Ordered Studies 03/20/21 07:00 [place] lumbar spine 2-3V Routine Hospital Course (1) Neurogenic claudication due to lumbar spinal stenosis: Patient with lumbar decompression fusion trial exhausting orthopedic for postoperative postop day 1 she was up and ambulating progressed to postop day or 2 on postop day #3 ANTONIO drain decreased appropriately. Excellent strength testing. Pain well controlled. Socially discharged home. Discharge orders instructions from the chart for further review. Total Time Total Time Spent Total Time Spent (In Minutes): 20 minutes Discharge Plan Discharge Items Patient Disposition: Home - Self-Care Reason For Visit: Spinal Stenosis, Lumbar Region with Neurogenic Discharge Diagnosis: Lumbar spinal stenosis with neurogenic claudication Activity: As commented below Non-emergency contact: Primary Care Provider Call non-emergency contact if: you have any medication questions Follow-up/Referrals: Jenn Lynch MD [Primary Care Provider] - Diet: Regular Addtl Attending Provider Instructions: ACTIVITY RECOMMENDATIONS: SELF CARE INSTRUCTIONS AFTER THORACIC/LUMBAR FUSIONS 1. You may walk to your tolerance. It is good exercise for your legs and back. Expect some back and intermittent leg aches and pains. 2. You may perform "counter-top" level activities (make a sandwich, bennie with a project, etc.). 3. No bending or lifting of more than 10 pounds or back twisting of any nature (roll like a log when turning in bed). 4. You may ride in a car for 20-30 minutes at a time. No driving until after your first visit with your doctor. 5. Frequent changes of position and restricting sitting to 30 minutes at a time will help limit the amount of back spasms and stiffness you may experience. 6. You may discontinue the use of ambulatory aids (cane, crutches, etc.) once your strength and confidence allow. 7. You may fishing manager the shower and let water strike your incision when you arrive home at least once daily. Do not take a tub bath, sit in a hot tub or go into a swimming pool until after your first recheck in the office. SPECIAL CARE INSTRUCTIONS: VERY IMPORTANT TO READ AND REVIEW A. Your surgical incision has been closed with a cosmetic suture under the skin that will dissolve in about 6 weeks. In 14 days, you can use a pair of clean scissors and cut the suture that is left outside of the skin at the ends of your incision. 1. The small skin tapes can be removed 7 days after surgery if they have not fallen off by that point. 2. You may keep the wound open to air as much as possible to promote healing after post-op day number 5 unless told otherwise by your doctor. 3. If you think the wound looks like it is becoming infected (redness or worsening drainage) and/or you are experiencing fever, chill or worsening back pain and muscle spasms, contact the office so that we may evaluate you as soon as possible. B. Complications are uncommon, but please contact us if you have any signs or symptoms of: 1. wound infection (fever higher than 102.5 degrees F, redness, separation of wound, drainage, or increasing pain from the incision) 2. blood clots in legs (pain, swelling, redness and warmth in legs) 3. urinary tract infection (fever higher than 102.5 degrees F, burning upon urination or increased frequency of urination) 4. nerve problems (inability to walk on your toes or heels, numbness, loss of bowel or bladder control) 5. any other symptoms that concern you C. Please call the office at if you have any concerns or questions about your operation or recovery. D. No smoking! Smoking drastically decreases the chance of a solid fusion. E. Do not take any anti-inflammatory medications (Indocin, Advil, Motrin, Aspirin, Naprosyn, etc.) as these may inhibit the chance of a solid fusion. Tylenol is okay to take for pain. MANAGING PAIN AFTER SPINAL SURGERY 1. Narcotic medication is intended for short-term use and will be provided for surgical pain. Surgical pain usually lasts for a period of 4-6 weeks. Narcotic medication includes Percocet, Vicodin, Darvocet, Tylenol #3 or Lortab. 2. Longer-term pain is more appropriately treated with non-narcotic medication such as Tylenol ES. 3. Muscle spasm is not appropriately treated with narcotics. Muscle relaxers such as Soma, Flexeril or Skelaxin can be used along with Tylenol ES. 4. Remember that we all live with some "aches and pains". This is not unusual or uncommon after an injury or as we get older. a. Back pain is expected and may include muscle spasms for 4 to 6 weeks after surgery. The pain should gradually improve. If the pain worsens for no apparent reason, please contact the office. b. Intermittent leg pain may also be experienced and should not be concerned about unless it worsens for no apparent reason. If so, please contact the office. 5. We will provide appropriate medication within the normal guidelines of their prescribed use. We will also be very cautious and aware of potential abuse and extended duration of patients' medication needs. a. Pain medications are for your comfort and to assist with sleep and rest so that the tissue can heal. They are not provided in order to return to normal activity and should not be used through the day. To do so or worsening pain at night can result from ongoing tissue damage and development of tolerance to the prescribed medicine. 6. Please allow 2-3 days to process refills. Prescriptions will not be mailed but must be picked up at the office. FOLLOW UP VISIT: Keep your scheduled follow-up appointment. Any questions, please call the office at . Pending Studies at Discharge: No Stand-Alone Forms: My [facility], Smoking Cessation Medications and MO Order Prescriptions: New tramadol 50 mg tablet 50 mg PO Q6H PRN (Reason: pain, moderate) Qty: 30 RF: 0 oxycodone 5 mg tablet 5 mg PO Q6H PRN (Reason: pain, severe) Qty: 30 RF: 0 Continued cyclobenzaprine 5 mg tablet 5 mg PO TID PRN (Reason: muscle spasm) Qty: 90 RF: 3 trazodone 50 mg tablet 100 mg PO HS Qty: 60 RF: 5 lisinopril 20 mg tablet 20 mg PO DAILY Qty: 90 RF: 3 One-A-Day Women's 50 Plus 400-20 mcg tablet 1 tab PO QAM RF: 0 ascorbic acid (vitamin C) [Vitamin C] 1,000 mg Tablet 1 g PO QAM RF: 0 aspirin [Aspirin Low Dose] 81 mg Tablet,Delayed Release (Dr/Ec) 81 mg PO QAM RF: 0 calcium carbonate [Calcium 600] 600 mg calcium (1,500 mg) Tablet 600 mg PO QAM RF: 0 magnesium 250 mg Tablet 250 mg PO QAM RF: 0 cinnamon bark [Cinnamon] 500 mg Capsule 1,000 mg PO BID RF: 0 cholecalciferol (vitamin D3) [Vitamin D3] 125 mcg (5,000 unit) Tablet 125 mcg PO QAM RF: 0 glucosamine HCl 500 mg Tablet 500 mg PO BID RF: 0 coQ10 (ubiquinol) 200 mg Capsule 200 mg PO QAM RF: 0 meloxicam 7.5 mg tablet 15 mg PO BID PRN (Reason: pain) RF: 0 gabapentin 100 mg capsule 100 mg PO HS RF: 0 rosuvastatin 5 mg tablet 5 mg PO HS RF: 0 turmeric root extract 500 mg Capsule 500 mg PO QAM RF: 0 venlafaxine [Effexor XR] 150 mg capsule,extended release 24hr 150 mg PO QAM RF: 0 hydrochlorothiazide 25 mg tablet 25 mg PO QAM RF: 0 Discharge Orders: Discharge Order (Routine); Ordered 03/23/21 Ordered By: Edmar Nava/Other Patient Handouts: DVT Post Op Prevention Admission Data Admit Date/Time: 03/20/21 11:57 Attending Provider: Edmar Iqbal Admit Provider: Edmar Iqbal Primary Care Provider: Jenn Lynch Other Providers: Lars Mcdaniel Other Interventions: Discharge Summary Assessment (RN) Last Done: 03/23/21 09:28
== END 2021-03-23 13:59 | disposition home or self-care (01) | DRG 455 ==
LOC: ASU 07:52 → 3E 11:57
DX: E78.5 Hyperlipidemia, unspecified; F41.9 Anxiety disorder, unspecified; M19.90 Unspecified osteoarthritis, unspecified site; Z79.82 Long term (current) use of aspirin; M85.48 Solitary bone cyst, other site; Z81.8 Family history of other mental and behavioral disorders; F32.9 Major depressive disorder, single episode, unspecified; Z82.49 Family history of ischemic heart disease and other diseases of the circulatory system; I10 Essential (primary) hypertension; M48.062 Spinal stenosis, lumbar region with neurogenic claudication; Z79.899 Other long term (current) drug therapy; Z77.22 Contact with and (suspected) exposure to environmental tobacco smoke (acute) (chronic); I35.0 Nonrheumatic aortic (valve) stenosis; Z87.891 Personal history of nicotine dependence